=== PATIENT | female | born 1945 ===

== ENCOUNTER → 2018-02-23 | Day surgery (SDC) | payer OTHER, MEDICARE ==
[~2018-02-23] VITALS: Ht 154.9 cm; Wt 61.2 kg
[~2018-02-23] MED LIST: AMIODARONE HCL200 M1 PO; AMIODARONE HCL400 MG PO; AUGMENTIN 875-1 EACH PO; BACTRIM DS TAB1 EACH PO; CARDIZEM CD180 MG PO; CARDIZEM CD240 MG PO; CARTIA XT120 MG PO; CARTIA XT180 M1 PO; CIPRO500 M1 PO; DIAZEPAM5 MG PO; DILTIAZEM240 M1 PO; DOCUSATE SODIU100 MG PO; ELIQUIS5 MG PO; FAMOTIDINE40 M1 PO; FLOMAX0.4 M1 PO; GABAPENTIN100 MG PO; KETOROLAC TROME10 M1 PO; LEVOTHYROXIN0.025 M1 PO; LEVOTHYROXINE75 MCG PO; LIDODERM 5% PAT1 PAT TOP; LINZESS145 MC1 PO; LINZESS72 MCG PO; MASON NATURAL2000 IU PO; MG-200200 MG PO; MIRALAX17 GM PO; MULTIVITAMINS1 EAC9 PO; NEURONTIN100 MG PO; NEURONTIN300 MG PO; PANTOPRAZOLE SO40 MG PO; PERCOCET 5-3251 EACH PO; PROBIOTIC1 EACH PO; TOPROL XL 50MG50 MG PO; TOPROL XL25 M1 PO; TOPROL XL25 MG PO; TRAMADOL HYDROC50 MG PO; TRAZODONE HCL300 M1 PO; VENLAFAXINE H37.5 M1 PO; VITAMIN B COMPL1 CAP PO; VITAMIN D1000 UNIT PO; ZOFRAN ODT4 M1 SL; ZOLPIDEM TARTRA10 MG PO
--- NOTE | 2018-02-23 10:46 | Operative Report ---
Operative/Inv Procedure Report Surgery Date: 02/23/18 Name of Procedure: Laparoscopic cholecystectomy Pre-Operative Diagnosis: Biliary colic Post-Operative Diagnosis: Same Estimated Blood Loss: scant Surgeon/Still Pump Operator: Pio GUTIÉRREZ,Mack Wei/Mayra BLAS Anesthesia: general endotracheal tube Drains: None Specimens: Gallbladder Operative Indication: 72-year-old woman presents with recurrent biliary colic. Operative/Procedure Note Note: After informed consent patient is brought to the operating room and laid supine. General anesthesia was obtained and her abdomen was prepped and draped. The skin above the umbilicus infiltrated with local anesthesia and a curvilinear incision made sharply. We came down through the subcutaneous tissues bluntly and grasped the fascia with Ryan's. A fasciotomy was created sharply and stay sutures placed. The peritoneum was entered sharply and a blunt Bernabe port was placed. Pneumoperitoneum was achieved. 3, 5 mm ports were placed in the epigastrium and right upper quadrant after local anesthesia was instilled and under direct vision the camera. She's placed in reverse Trendelenburg and rotated towards the left. The gallbladder is identified. It was grasped at the dome and retracted towards the head. Infundibulum was then grasped. Adhesions to the undersurface were taken down with blunt and cautery dissection. We dissected both sides the triangle Calot peritoneal tissue with cautery. The artery was lateral, also associated with a calot node. It was cauterized medially to allow it to be mobilized away from the duct. Rumney was cleared of areolar tissue with cautery. The arteries and duct were doubly ligated with clips. Gallbladder is removed from the fossa electrocautery. It was placed in Endo Catch bag and cinched up. Right upper quadrant was and suction irrigated normal saline. Hemostasis achieved with cautery. The ports were then removed and the gallbladder delivered and passed off the field. The fascia was closed with 0 Vicryl suture. Skin incisions closed with 4-0 Vicryl. Steri-Strips and sterile dressing applied. Sponge and needle counts are correct. CC: Anuj GUTIÉRREZ,Sergio Costa; Timoteo GUTIÉRREZ,Jones Jolly
== END ==
LOC: STS 01:06
DX: K80.10 Calculus of gallbladder with chronic cholecystitis without obstruction (principal); B19.20 Unspecified viral hepatitis C without hepatic coma; E03.9 Hypothyroidism, unspecified; I10 Essential (primary) hypertension; I48.91 Unspecified atrial fibrillation
CPT/HCPCS: J0131; J0690; J2250; J3490